=== PATIENT | male | born 1975 | race Caucasian/White ===

== ENCOUNTER 2021-09-15 21:10 | Emergency (ER) | payer OTHER ==
--- NOTE | 2021-09-15 23:21 | XR ---
EXAMINATION TYPE: XR chest 1V portable DATE OF EXAM: 09/15/2021 COMPARISON: NONE HISTORY: Cough TECHNIQUE: Single view FINDINGS: Heart and mediastinum are normal. Lungs are clear. Diaphragm is normal. Bony thorax is inta ct. IMPRESSION: Normal chest.
[2021-09-16] MEDS ORDERED: SOTROVIMAB (EUA) 500 MG in SODIUM CHLORIDE 0.9% 100 ML IVPB ONE (01:30)
[2021-09-16] MEDS ORDERED: SODIUM CHLORIDE 0.9% 50 ML IVPB ONE (01:30)
[2021-09-16 01:50] VITALS: PULSE 64
--- NOTE | 2021-09-16 03:03 | ED ---
URI HPI - General Chief Complaint: Upper Respiratory Infection Stated Complaint: COVID+, Needs Antibodies Time Seen by Provider: 09/16/21 00:28 Source: patient Mode of arrival: ambulatory Limitations: no limitations - History of Present Illness MD Complaint: fever, cough, nasal congestion Onset/Timin -: days(s) Severity: moderate Quality: aching Consistency: constant Improves With: nothing Worsens With: nothing Context: sick contacts Associated Symptoms: fever, chills, myalgias, nasal congestion, cough - Related Data Allergies Allergy/AdvReac Type Severity Reaction Status Date / Time No Known Allergies Allergy Verified 09/15/21 22:47 Review of Systems ROS Statement: Those systems with pertinent positive or pertinent negative responses have been documented in the HPI. ROS Other: All systems not noted in ROS Statement are negative. Constitutional: Reports: fever, chills ENT: Reports: congestion Respiratory: Reports: cough. Denies: dyspnea Cardiovascular: Denies: chest pain, palpitations Gastrointestinal: Denies: abdominal pain, vomiting, diarrhea Musculoskeletal: Reports: myalgia Skin: Denies: rash Neurological: Reports: headache Past Medical History Past Medical History: Asthma History of Any Multi-Drug Resistant Organisms: None Reported Past Surgical History: No Surgical Hx Reported Past Psychological History: No Psychological Hx Reported Smoking Status: Never smoker Past Alcohol Use History: None Reported Past Drug Use History: None Reported General Exam Limitations: no limitations General appearance: alert, in no apparent distress Head exam: Present: atraumatic, normocephalic Eye exam: Present: normal appearance. Absent: scleral icterus, conjunctival injection ENT exam: Present: normal oropharynx Neck exam: Present: normal inspection Respiratory exam: Present: normal lung sounds bilaterally. Absent: respiratory distress, wheezes, rales, rhonchi, stridor Cardiovascular Exam: Present: regular rate, normal rhythm, normal heart sounds. Absent: systolic murmur, diastolic murmur, rubs, gallop GI/Abdominal exam: Present: soft. Absent: distended, tenderness, guarding, rebound, rigid Extremities exam: Present: normal inspection, normal capillary refill. Absent: pedal edema, calf tenderness Back exam: Present: normal inspection Neurological exam: Present: alert Skin exam: Present: warm, dry, intact, normal color. Absent: rash Course Vital Signs 09/15/21 09/16/21 09/16/21 22:43 01:50 03:00 Temperature 99.5 F 99.4 F 98.2 F Pulse Rate 70 64 64 Respiratory 22 18 15 Rate Blood Pressure 116/77 100/57 107/53 O2 Sat by Pulse 98 99 96 Oximetry Medical Decision Making - Lab Data Lab Results 09/15/21 Range/Units 23:27 Coronavirus (PCR) Detected A (Not Detectd) Disposition Clinical Impression: COVID-19 Disposition: HOME SELF-CARE Instructions (If sedation given, give patient instructions): Coronavirus Disease 2019 (COVID-19) Is patient prescribed a controlled substance at d/c from ED?: No Referrals: Duglas Taylor MD [Primary Care Provider] - 1-2 days
[2021-09-16 03:08] VITALS: BP 107/53; RESP 15; TEMP 98.2
== END 2021-09-16 03:10 | disposition home or self-care (01) ==
LOC: EC 21:10
DX: U07.1 COVID-19 (principal); J45.909 Unspecified asthma, uncomplicated
CPT/HCPCS: 87635; 71045; 99283; 96360; Q0247